=== PATIENT | female | born 1980 | race Caucasian/White ===

== ENCOUNTER 2018-05-17 12:38 | Observation (INO) | payer MEDICAID ==
[~2018-05-17] VITALS: Ht 147 cm; Wt 49.4 kg
[2018-05-17] MEDS ORDERED: LACTATED RINGERS 1,000 ML IV SCH (13:45)
[2018-05-17 14:27] LABS: CLARITY URINE CLEAR (CLEAR); COLOR URINE YELLOW (YELLOW); KETONES URINE 1+ (NEGATIVE); LEUKOCYTE ESTERASE URINE 1+ (NEGATIVE); NITRITE URINE NEGATIVE (NEGATIVE); OCCULT BLOOD URINE NEGATIVE (NEGATIVE); PH URINE 7.5 (4.5-8.0); PROTEIN URINE 1+ (NEGATIVE); SPECIFIC GRAVITY URINE 1.028 (1.005-1.030); UROBILINOGEN URINE 0.2 E.U./dL (0.2-1.0)
== END 2018-05-17 16:10 | disposition home or self-care (01) ==
LOC: 8 EST LDRP 12:38
PROVIDERS: ADMIT Obstetrics & Gynecology; ATTEND Obstetrics & Gynecology
DX: O26.893 Other specified pregnancy related conditions, third trimester (principal); R10.30 Lower abdominal pain, unspecified; R10.10 Upper abdominal pain, unspecified; O09.523 Supervision of elderly multigravida, third trimester; M54.5 Low back pain; Z3A.28 28 weeks gestation of pregnancy
CPT/HCPCS: 81003; 99281; G0378; 96360; 96361

== ENCOUNTER 2018-06-19 05:13 | Observation (INO) | payer MEDICAID ==
[~2018-06-19] VITALS: Ht 148 cm; Wt 81.6 kg
[2018-06-19] MEDS: LACTATED RINGERS 1,000 ML IV SCH ×3 (07:30→12:39)
[2018-06-19 08:44] LABS: CLARITY URINE CLEAR (CLEAR); COLOR URINE YELLOW (YELLOW); KETONES URINE NEGATIVE (NEGATIVE); LEUKOCYTE ESTERASE URINE NEGATIVE (NEGATIVE); NITRITE URINE NEGATIVE (NEGATIVE); OCCULT BLOOD URINE 2+ (NEGATIVE); PROTEIN URINE NEGATIVE (NEGATIVE); SPECIFIC GRAVITY URINE 1.009 (1.005-1.030); UROBILINOGEN URINE 0.2 E.U./dL (0.2-1.0)
[2018-06-19] MEDS ORDERED: MAGNESIUM 20 G PREMIX (L & D) 500 ML IV SCH (09:15)
[2018-06-19] MEDS ORDERED: BETAMETHASONE ACET/BETAMET 30 MG/5 ML VIAL IM SCH (09:30)
[2018-06-19 10:01] VITALS: BP 109/59
[2018-06-19 11:18] LABS: BASOPHILS % 0.4 % (0.0-2.0); EOSINOPHILS % 1.3 % (0.0-5.0); HEMOGLOBIN. 11.9 g/dL (12.0-16.0); LYMPHOCYTES % 15.9 % (20.0-50.0); MEAN CORPUSCULAR HEMOGLOBIN 31.1 pg (28.0-32.0); MEAN CORPUSCULAR VOLUME 91.5 fL (81.0-99.0); MEAN PLATELET VOLUME 7.3 fl (7.4-10.4); MONOCYTES % 5.3 % (2.0-8.0); NEUTROPHILS % 77.1 % (40.0-76.0); PLATELET 252 x1000/uL (130-400); RED BLOOD CELL COUNT 3.82 mill/uL (4.2-5.4); RED CELL DISTRIBUTION WIDTH 13.1 % (11.6-14.6)
[2018-06-19] MEDS ORDERED: TERBUTALINE SULFATE 1MG/ML VIAL SUBCUT PRN (13:00)
[2018-06-19] MEDS ORDERED: NIFEDIPINE 10MG CAPSULE PO NR (14:00)
== END 2018-06-19 15:05 | disposition home or self-care (01) ==
LOC: 8 EST LDRP 05:13 → INTOOBSV 05:13 → OBSVTOIN 05:13 → 8 EST LDRP 15:04
PROVIDERS: ADMIT Obstetrics & Gynecology; ATTEND Obstetrics & Gynecology
DX: O46.93 Antepartum hemorrhage, unspecified, third trimester (principal); Z3A.33 33 weeks gestation of pregnancy
CPT/HCPCS: 36415; 76805; 76817; 76818; 81003; 85025; 86850; 86900; 86901; 96365; 96366; 96372; G0378; J0702; J3105; J3475; J7120; 99281; A4315

== ENCOUNTER 2018-06-20 09:05 | Observation (INO) | payer MEDICAID ==
[~2018-06-20] VITALS: Ht 154.9 cm; Wt 67.1 kg
[2018-06-20] MEDS ORDERED: BETAMETHASONE ACET/BETAMET 30 MG/5 ML VIAL IM ONE (10:15)
== END 2018-06-20 10:45 | disposition home or self-care (01) ==
LOC: OB TRIAGE 09:05
PROVIDERS: ADMIT Obstetrics & Gynecology; ATTEND Obstetrics & Gynecology
DX: O26.893 Other specified pregnancy related conditions, third trimester (principal); R10.30 Lower abdominal pain, unspecified; O09.523 Supervision of elderly multigravida, third trimester; Z3A.33 33 weeks gestation of pregnancy
CPT/HCPCS: 96372; 99281; G0378; 96360; 96361

== ENCOUNTER 2018-07-30 21:02 | Observation (INO) | payer MEDICAID ==
[~2018-07-30] VITALS: Ht 137.2 cm; Wt 59.0 kg
[2018-07-30] MEDS ORDERED: FERR325T23 MT (21:33)
[2018-07-30] MEDS ORDERED: PREN-142 MT (21:33)
[2018-07-31 01:05] LABS: BASOPHILS % 0.7 % (0.0-2.0); EOSINOPHILS % 1.2 % (0.0-5.0); HEMATOCRIT. 38.2 % (36.0-48.0); HEMOGLOBIN. 12.9 g/dL (12.0-16.0); LYMPHOCYTES % 15.3 % (20.0-50.0); MEAN CORPUSCULAR HEMOGLOBIN 31.1 pg (28.0-32.0); MEAN CORPUSCULAR VOLUME 91.7 fL (81.0-99.0); MEAN PLATELET VOLUME 8.5 fl (7.4-10.4); MONOCYTES % 7.1 % (2.0-8.0); NEUTROPHILS % 75.7 % (40.0-76.0); PLATELET 230 x1000/uL (130-400); RED BLOOD CELL COUNT 4.16 mill/uL (4.2-5.4); RED CELL DISTRIBUTION WIDTH 13.9 % (11.6-14.6)
[2018-07-31 01:29] LABS: CLARITY URINE CLEAR (CLEAR); COLOR URINE YELLOW (YELLOW); KETONES URINE NEGATIVE (NEGATIVE); LEUKOCYTE ESTERASE URINE 2+ (NEGATIVE); NITRITE URINE NEGATIVE (NEGATIVE); OCCULT BLOOD URINE NEGATIVE (NEGATIVE); PROTEIN URINE NEGATIVE (NEGATIVE); SPECIFIC GRAVITY URINE 1.005 (1.005-1.030); UROBILINOGEN URINE 0.2 E.U./dL (0.2-1.0)
[2018-07-31 01:50] LABS: *AMPHETAMINES SCREEN URINE NEGATIVE (NEGATIVE); *BARBITURATES SCREEN URINE NEGATIVE (NEGATIVE); *BENZODIAZEPINES SCREEN URINE NEGATIVE (NEGATIVE); *COCAINE SCREEN URINE NEGATIVE (NEGATIVE); CANNABINOID URINE SCREEN NEGATIVE (NEGATIVE)
[2018-07-31 01:52] LABS: METHADONE URINE SCREEN NEGATIVE (NEGATIVE); OPIATES URINE SCREEN NEGATIVE (NEGATIVE); PHENCYCLIDINE URINE SCREEN NEGATIVE (NEGATIVE)
== END 2018-07-31 00:59 | disposition home or self-care (01) ==
LOC: 8 EST LDRP 21:02
PROVIDERS: ADMIT Obstetrics & Gynecology; ATTEND Obstetrics & Gynecology
DX: O36.8130 Decreased fetal movements, third trimester, not applicable or unspecified (principal); Z3A.36 36 weeks gestation of pregnancy
CPT/HCPCS: 36415; 76805; 76817; 76818; 80305; 81003; 85025; G0378

== ENCOUNTER 2018-07-31 06:22 | Inpatient (IN) | payer MEDICAID ==
[~2018-07-31] VITALS: Ht 139.7 cm; Wt 59.0 kg
[~2018-07-31 06:22] MED LIST: FERR325T23 MT; PREN-142 MT
[2018-07-31] MEDS ORDERED: DEXT 5%/LR + PITOCIN 20UNITS/L 1,000 ML IV SCH (06:53)
[2018-07-31] MEDS ORDERED: CARBOPROST TROMETHAMINE 250 MCG/ML AMPUL IM PRN (07:00)
[2018-07-31] MEDS ORDERED: METHYLERGONOVINE MALEATE 0.2 MG/ML IM PRN (07:00)
[2018-07-31] MEDS ORDERED: CITRIC ACID/SODIUM CITRATE SOLN 30ML UDC PO ONE (07:15)
[2018-07-31 07:55] LABS: INR 0.9; PROTHROMBIN TIME 9.1 sec (9.1-11.1)
[2018-07-31] MEDS ORDERED: LACTATED RINGERS 1,000 ML IV SCH (09:00)
[2018-07-31] MEDS ORDERED: MORPHINE SULFATE/PF 1MG/ML 10ML AMP ONE (09:11)
[2018-07-31] MEDS ORDERED: FENTANYL CITRATE/PF 50MCG/ML 2ML VIAL ONE (09:11)
[2018-07-31] MEDS ORDERED: EPHEDRINE SULFATE 50MG/ML VIAL ONE (09:13)
[2018-07-31] MEDS ORDERED: CEFAZOLIN SODIUM 1000MG/VIAL ONE (09:13)
[2018-07-31] MEDS ORDERED: SODIUM CHLORIDE 0.9% 10ML VIAL ONE ×2 (09:13→09:17)
[2018-07-31] MEDS ORDERED: OXYTOCIN 10 UNITS/ML 1ML ONE (09:13)
[2018-07-31] MEDS ORDERED: ONDANSETRON HCL 4MG/2ML INJ ONE (09:13)
[2018-07-31] MEDS ORDERED: PHENYLEPHRINE HCL 10 MG/ML 1ML (IV VIAL) IV ONE (09:14)
[2018-07-31 09:54] LABS: HEPATITIS B SURFACE ANTIGEN NEGATIVE
[2018-07-31] MEDS ORDERED: CITRIC ACID/SODIUM CITRATE SOLN 30ML UDC PO SCH (10:30)
[2018-07-31] MEDS ORDERED: HYDROMORPHONE HCL/PF 2MG/ML CPJ IM PRN (11:30)
[2018-07-31] MEDS ORDERED: RHO(D) IMMUNE GLOBULIN 300 MCG/SYR IM PRN (11:30)
[2018-07-31] MEDS ORDERED: ONDANSETRON HCL 4MG/2ML INJ IV PRN ×2 (11:30→11:45)
[2018-07-31] MEDS ORDERED: BISACODYL 10MG SUPP PR PRN (11:30)
[2018-07-31] MEDS ORDERED: IBUPROFEN 400MG TABLET PO PRN (11:30)
[2018-07-31] MEDS ORDERED: DIPHENHYDRAMINE 50MG/ML VIAL IV PRN (11:45)
[2018-07-31] MEDS ORDERED: MEPERIDINE HCL/PF 25MG/ML CPJ IV PRN (11:45)
[2018-07-31] MEDS ORDERED: METOCLOPRAMIDE HCL 10MG/2ML VIAL IV PRN (11:45)
[2018-07-31] MEDS ORDERED: KETOROLAC 30MG/ML VIAL IV PRN (11:45)
[2018-07-31] MEDS: DEXT 5%/LR + PITOCIN 20UNITS/L 1,000 ML IV SCH ×2 (11:58→21:41)
[2018-07-31 13:40] VITALS: BP 109/52
[2018-07-31] MEDS ORDERED: CARBOPROST TROMETHAMINE 250 MCG/ML AMPUL IM ONE (13:41)
[2018-07-31 14:10] VITALS: BP 107/70
[2018-07-31 19:40] VITALS: BP 100/61
[2018-08-01] VITALS: BP 122/69
[2018-08-01 05:20] VITALS: BP 105/60
[2018-08-01] MEDS: DEXT 5%/LR + PITOCIN 20UNITS/L 1,000 ML IV SCH (05:55)
[2018-08-01 08:44] LABS: HEMATOCRIT. 32.2 % (36.0-48.0); HEMOGLOBIN. 10.9 g/dL (12.0-16.0); MEAN CORPUSCULAR HEMOGLOBIN 31.3 pg (28.0-32.0); MEAN CORPUSCULAR VOLUME 92.1 fL (81.0-99.0); PLATELET 204 x1000/uL (130-400); RED CELL DISTRIBUTION WIDTH 13.8 % (11.6-14.6)
[2018-08-01 08:52] VITALS: BP 94/58
[2018-08-01] MEDS: IBUPROFEN 800MG TABLET PO PRN ×2 (10:49→19:54)
[2018-08-01 14:10] LABS: PLATELET ESTIMATE NORMAL
[2018-08-01 16:00] VITALS: BP 96/50
[2018-08-01 19:10] VITALS: BP 123/64
[2018-08-01 23:21] VITALS: BP 100/62
[2018-08-02 04:08] VITALS: BP 96/56
[2018-08-02] MEDS: IBUPROFEN 800MG TABLET PO PRN ×3 (04:12→19:42)
[2018-08-02 07:28] VITALS: BP 104/50
[2018-08-02] MEDS: HYDROCODONE/ACETAMINOPHEN 5/325MG TABLET PO PRN (09:19)
[2018-08-02 15:37] VITALS: BP 116/51
[2018-08-02 19:15] VITALS: BP 114/63
[2018-08-02 23:30] VITALS: BP 118/80
[2018-08-03] MEDS: HYDROCODONE/ACETAMINOPHEN 5/325MG TABLET PO PRN (00:59)
[2018-08-03 03:30] VITALS: BP 98/57
[2018-08-03 09:03] VITALS: BP 120/72
[2018-08-03] MEDS: IBUPROFEN 800MG TABLET PO PRN (12:36)
== END 2018-08-03 12:15 | disposition home or self-care (01) | DRG 540 ==
LOC: 8 EST LDRP 06:22 → OBSVTOIN 06:22 → 8 EST LDRP 08:08 → 8EST 14:07
PROVIDERS: ADMIT Obstetrics & Gynecology; ATTEND Obstetrics & Gynecology
PROC: 10D00Z1 Extraction of Products of Conception, Low, Open Approach (ICD-10-PCS; principal; 2018-07-31)
PROC: 0UB70ZZ Excision of Bilateral Fallopian Tubes, Open Approach (ICD-10-PCS; 2018-07-31)
DX: O69.81X0 Labor and delivery complicated by cord around neck, without compression, not applicable or unspecified (principal); O09.523 Supervision of elderly multigravida, third trimester; Z37.0 Single live birth; Z30.2 Encounter for sterilization; Z3A.39 39 weeks gestation of pregnancy; O90.81 Anemia of the puerperium
CPT/HCPCS: 36415; 85007; 85027; 86592; 86703; 86762; 86850; 86900; 87340; 88302; 88307; 99281; G0378; J0690; J1200; J1885; J2274; J2370; J2405; J2590; J3010; J3490; A4315